=== PATIENT | male | born 1985 | race Caucasian/White ===

== ENCOUNTER → 2021-07-23 | Outpatient (CLI) | payer OTHER | LOC: HYPER 08:54 | PROVIDERS: ATTEND Emergency Medicine Emergency Medical Services | DX: T81.89XA Other complications of procedures, not elsewhere classified, initial encounter (principal); L97.512 Non-pressure chronic ulcer of other part of right foot with fat layer exposed; S93.521A Sprain of metatarsophalangeal joint of right great toe, initial encounter; S99.821A Other specified injuries of right foot, initial encounter; M79.671 Pain in right foot; M25.80 Other specified joint disorders, unspecified joint; Q66.71 Congenital pes cavus, right foot; E66.9 Obesity, unspecified; Z68.37 Body mass index [BMI] 37.0-37.9, adult; Z79.899 Other long term (current) drug therapy; Z90.89 Acquired absence of other organs; Y83.8 Other surgical procedures as the cause of abnormal reaction of the patient, or of later complication, without mention of misadventure at the time of the procedure; X58.XXXA Exposure to other specified factors, initial encounter; Y93.89 Activity, other specified; Y92.238 Other place in hospital as the place of occurrence of the external cause; Y99.8 Other external cause status ==

== ENCOUNTER → 2021-08-01 | Outpatient (CLI) | payer OTHER | LOC: HYPER 13:07 | PROVIDERS: ATTEND Emergency Medicine | DX: T81.89XD Other complications of procedures, not elsewhere classified, subsequent encounter (principal); L97.512 Non-pressure chronic ulcer of other part of right foot with fat layer exposed; S93.521D Sprain of metatarsophalangeal joint of right great toe, subsequent encounter; S99.821D Other specified injuries of right foot, subsequent encounter; T14.8XXD Other injury of unspecified body region, subsequent encounter; M79.671 Pain in right foot; M25.80 Other specified joint disorders, unspecified joint; Q66.71 Congenital pes cavus, right foot; E66.9 Obesity, unspecified; Z09 Encounter for follow-up examination after completed treatment for conditions other than malignant neoplasm; Z68.37 Body mass index [BMI] 37.0-37.9, adult; Z90.89 Acquired absence of other organs; Y83.8 Other surgical procedures as the cause of abnormal reaction of the patient, or of later complication, without mention of misadventure at the time of the procedure; X58.XXXD Exposure to other specified factors, subsequent encounter ==

== ENCOUNTER → 2021-08-08 | Outpatient (CLI) | payer OTHER | LOC: HYPER 13:49 | PROVIDERS: ATTEND Emergency Medicine | DX: T81.89XD Other complications of procedures, not elsewhere classified, subsequent encounter (principal); L97.512 Non-pressure chronic ulcer of other part of right foot with fat layer exposed; S93.521D Sprain of metatarsophalangeal joint of right great toe, subsequent encounter; S99.821D Other specified injuries of right foot, subsequent encounter; T14.8XXD Other injury of unspecified body region, subsequent encounter; M79.671 Pain in right foot; M25.80 Other specified joint disorders, unspecified joint; Q66.71 Congenital pes cavus, right foot; E66.9 Obesity, unspecified; Z09 Encounter for follow-up examination after completed treatment for conditions other than malignant neoplasm; Z68.37 Body mass index [BMI] 37.0-37.9, adult; Z90.89 Acquired absence of other organs; X58.XXXD Exposure to other specified factors, subsequent encounter; Y83.8 Other surgical procedures as the cause of abnormal reaction of the patient, or of later complication, without mention of misadventure at the time of the procedure ==

== ENCOUNTER → 2021-08-15 | Outpatient (CLI) | payer OTHER | LOC: HYPER 13:38 | PROVIDERS: ATTEND Emergency Medicine | DX: T81.89XD Other complications of procedures, not elsewhere classified, subsequent encounter (principal); L97.512 Non-pressure chronic ulcer of other part of right foot with fat layer exposed; S93.521D Sprain of metatarsophalangeal joint of right great toe, subsequent encounter; S99.821D Other specified injuries of right foot, subsequent encounter; T14.8XXD Other injury of unspecified body region, subsequent encounter; L84 Corns and callosities; M79.671 Pain in right foot; M25.80 Other specified joint disorders, unspecified joint; Q66.71 Congenital pes cavus, right foot; E66.9 Obesity, unspecified; Z09 Encounter for follow-up examination after completed treatment for conditions other than malignant neoplasm; Z68.37 Body mass index [BMI] 37.0-37.9, adult; Z90.89 Acquired absence of other organs; X58.XXXD Exposure to other specified factors, subsequent encounter; Y83.8 Other surgical procedures as the cause of abnormal reaction of the patient, or of later complication, without mention of misadventure at the time of the procedure ==

== ENCOUNTER → 2021-08-22 | Outpatient (CLI) | payer OTHER | LOC: HYPER 14:47 | PROVIDERS: ATTEND Emergency Medicine | DX: T81.89XD Other complications of procedures, not elsewhere classified, subsequent encounter (principal); L97.512 Non-pressure chronic ulcer of other part of right foot with fat layer exposed; S93.521D Sprain of metatarsophalangeal joint of right great toe, subsequent encounter; S99.821D Other specified injuries of right foot, subsequent encounter; T14.8XXD Other injury of unspecified body region, subsequent encounter; L84 Corns and callosities; M79.671 Pain in right foot; M25.80 Other specified joint disorders, unspecified joint; Q66.71 Congenital pes cavus, right foot; E66.9 Obesity, unspecified; Z09 Encounter for follow-up examination after completed treatment for conditions other than malignant neoplasm; Z68.37 Body mass index [BMI] 37.0-37.9, adult; Z90.89 Acquired absence of other organs; X58.XXXD Exposure to other specified factors, subsequent encounter; Y83.8 Other surgical procedures as the cause of abnormal reaction of the patient, or of later complication, without mention of misadventure at the time of the procedure ==

== ENCOUNTER → 2021-09-05 | Outpatient (CLI) | payer OTHER | LOC: HYPER 14:42 | PROVIDERS: ATTEND Emergency Medicine | DX: T81.89XD Other complications of procedures, not elsewhere classified, subsequent encounter (principal); L97.512 Non-pressure chronic ulcer of other part of right foot with fat layer exposed; S93.521D Sprain of metatarsophalangeal joint of right great toe, subsequent encounter; S99.821D Other specified injuries of right foot, subsequent encounter; T14.8XXD Other injury of unspecified body region, subsequent encounter; L84 Corns and callosities; M79.671 Pain in right foot; M25.80 Other specified joint disorders, unspecified joint; Q66.71 Congenital pes cavus, right foot; E66.9 Obesity, unspecified; Z09 Encounter for follow-up examination after completed treatment for conditions other than malignant neoplasm; Z68.37 Body mass index [BMI] 37.0-37.9, adult; Z90.89 Acquired absence of other organs; X58.XXXD Exposure to other specified factors, subsequent encounter; Y83.8 Other surgical procedures as the cause of abnormal reaction of the patient, or of later complication, without mention of misadventure at the time of the procedure ==